=== PATIENT | female | born 1985 | race Caucasian/White ===

== ENCOUNTER 2016-05-21 12:41 | Emergency (ER) | payer BC ==
[2016-05-21 13:54] VITALS: BP 126/71
[2016-05-21] MEDS ORDERED: Famotidine TAB* 20 MG PO ONE (14:30)
--- NOTE | 2016-05-21 14:34 | UC ---
UC General HPI - HPI Summary HPI Summary: patient was throwing up saturday night. slept all day saturday, has not been able to eat or drink feels like her stomach is on fire. - History of Current Complaint Chief Complaint: UCGI Stated Complaint: STOMACH "ON FIRE" Time Seen by Provider: 05/21/16 14:25 Hx Obtained From: Patient Onset/Duration: Sudden Onset, Lasting Days Timing: Constant Onset Severity: Moderate Current Severity: Moderate Pain Intensity: 6 Pain Location at: epigastric Character: burning - Allergy/Home Medications Allergies/Adverse Reactions: Allergies Allergy/AdvReac Type Severity Reaction Status Date / Time Latex Allergy Intermediate Hives Verified 05/21/16 13:54 Penicillins Allergy Intermediate Hives Verified 05/21/16 13:54 PMH/Surg Hx/FS Hx/Imm Hx Previously Healthy: Yes Endocrine History Of: Denies: Diabetes, Thyroid Disease Cardiovascular History Of: Denies: Cardiac Disorders, Hypertension Respiratory History Of: Reports: Asthma - MILD, NOT TREATED, CHILD Denies: COPD GI/ History Of: Denies: Ulcer - Surgical History Surgical History: Yes Surgery Procedure, Year, and Place: T&A, RIGHT KNEE SURERY, TUBES IN EARS. LEFT EAR TUBE INSERTED, OCTOBER 18, 2014 - Family History Known Family History: Positive: Cardiac Disease - father Negative: Hypertension - Social History Alcohol Use: Occasionally Substance Use Type: None Smoking Status (MU): Never Smoked Tobacco Have You Smoked in the Last Year: No Review of Systems Constitutional: Fatigue Skin: Negative Eyes: Negative ENT: Negative Respiratory: Negative Cardiovascular: Negative Gastrointestinal: Abdominal Pain - epigastric, Vomiting Genitourinary: Negative Motor: Negative Neurovascular: Negative Musculoskeletal: Negative Neurological: Negative Psychological: Negative All Other Systems Reviewed And Are Negative: Yes Physical Exam Triage Information Reviewed: Yes Appearance: Well-Nourished, Ill-Appearing, Pain Distress Vital Signs: Initial Vital Signs Temp 97.8 F 05/21/16 13:51 Pulse 82 05/21/16 13:51 Resp 14 05/21/16 13:51 BP 126/71 05/21/16 13:51 Pulse Ox 100 05/21/16 13:51 Vital Signs Reviewed: Yes Eye Exam: Normal Eyes: Positive: Conjunctiva Clear ENT Exam: Normal ENT: Positive: Hearing grossly normal, Pharyngeal erythema, TMs normal Dental Exam: Normal Neck exam: Normal Neck: Positive: Supple, Nontender, No Lymphadenopathy Respiratory Exam: Normal Respiratory: Positive: Chest non-tender, Lungs clear, Normal breath sounds Cardiovascular Exam: Normal Cardiovascular: Positive: RRR, No Murmur, Pulses Normal Abdominal Exam: Other - epigastric tenderness, no rebound tenderness, no guarding or distention Abdomen Description: Positive: No Organomegaly Bowel Sounds: Positive: Present Musculoskeletal Exam: Normal Neurological Exam: Normal Neurological: Positive: Alert, Muscle Tone Normal Psychological Exam: Normal Skin Exam: Normal Course/Dx - Course Course Of Treatment: hx obtained, exam performed, famotidine given with good results. medication prescribed. - Differential Dx - Multi-Symptom Provider Diagnoses: epigastric pain. GERD Discharge - Discharge Plan Condition: Stable Disposition: HOME Forms: *Work Release
== END 2016-05-21 15:24 | disposition home or self-care (01) ==
LOC: UCCORT 12:41
DX: K21.9 Gastro-esophageal reflux disease without esophagitis (principal); R10.13 Epigastric pain; Z88.0 Allergy status to penicillin
CPT/HCPCS: 99212; A9270-GY; G0463

== ENCOUNTER 2017-02-19 08:28 | Emergency (ER) | payer SELFPAY ==
[2017-02-19 08:42] VITALS: BP 134/78
--- NOTE | 2017-02-19 09:22 | UC ---
Hand/Wrist HPI - HPI Summary HPI Summary: right hand pain x 3 hrs injury to her right hand at work crushing injury + pain and swelling of the hand - History Of Current Complaint Chief Complaint: UCUpperExtremity Stated Complaint: RIGHT HAND INJURY WC Time Seen by Provider: 02/19/17 08:39 Hx Obtained From: Patient Hx Last Menstrual Period: 02/15/17 Onset/Duration: Sudden Onset, Lasting Hours - 3, Still Present Severity Initially: Moderate Severity Currently: Moderate Character Of Pain: Aching Aggravating Factor(s): Movement, Flexion, Extension Alleviating Factor(s): Rest, Ice Associated Signs And Symptoms: Positive: Swelling. Negative: Redness, Bruising , Fever, Weakness, Numbness/Tingling - Allergies/Home Medications Allergies/Adverse Reactions: Allergies Allergy/AdvReac Type Severity Reaction Status Date / Time Latex Allergy Intermediate Hives Verified 02/19/17 08:42 Penicillins Allergy Intermediate Hives Verified 02/19/17 08:42 PMH/Surg Hx/FS Hx/Imm Hx Previously Healthy: Yes Respiratory History: Asthma - Surgical History Surgical History: Yes Surgery Procedure, Year, and Place: T&A, RIGHT KNEE SURERY, TUBES IN EARS. LEFT EAR TUBE INSERTED, OCTOBER 18, 2014 - Family History Known Family History: Positive: Cardiac Disease - father Negative: Hypertension - Social History Alcohol Use: Occasionally Substance Use Type: None Smoking Status (MU): Never Smoked Tobacco Have You Smoked in the Last Year: No Review of Systems Constitutional: Negative Skin: Negative Eyes: Negative ENT: Negative Respiratory: Negative Is Patient Immunocompromised?: No All Other Systems Reviewed And Are Negative: Yes Physical Exam Triage Information Reviewed: Yes Appearance: Well-Appearing, No Pain Distress, Well-Nourished Vital Signs: Initial Vital Signs Temp 98.6 F 02/19/17 08:33 Pulse 67 02/19/17 08:33 Resp 18 02/19/17 08:33 BP 134/78 02/19/17 08:33 Vital Signs Reviewed: Yes Eye Exam: Normal Eyes: Positive: Conjunctiva Clear ENT: Positive: Normal ENT inspection, Hearing grossly normal, Pharynx normal Neck: Positive: Supple, Nontender, No Lymphadenopathy Respiratory: Positive: Chest non-tender, Lungs clear, Normal breath sounds Cardiovascular: Positive: RRR, No Murmur, Pulses Normal Musculoskeletal: Positive: Other: - right hand : + swelling, no ecchymosis, + tenderness 2,3rd metacarpal, goo ROM with flexion and extension Skin Exam: Normal Hand/Wrist Course/Dx - Differential Dx/Diagnosis Provider Diagnoses: contusion right hand Discharge - Discharge Plan Condition: Stable Disposition: HOME Patient Education Materials: Contusion in Adults (ED) Referrals: Gamal Meredith MD [Primary Care Provider] - 7 Days
--- NOTE | 2017-02-19 09:33 | RAD ---
INDICATION: Right hand injury. TECHNIQUE: 4 views of the right hand were obtained. FINDINGS: The bones are in normal alignment. No fracture is seen. Joint spaces appear maintained. IMPRESSION: NO EVIDENCE FOR FRACTURE, IF THE PATIENT'S SYMPTOMS PERSIST RECOMMEND FOLLOW-UP IMAGING.
== END 2017-02-19 09:38 | disposition home or self-care (01) ==
LOC: UCCORT 08:28
DX: Z88.0 Allergy status to penicillin (principal); Z91.040 Latex allergy status; S60.221A Contusion of right hand, initial encounter; X58.XXXA Exposure to other specified factors, initial encounter; Y92.9 Unspecified place or not applicable; Y99.0 Civilian activity done for income or pay
CPT/HCPCS: 99212; G0463

== ENCOUNTER 2018-05-03 09:12 | Emergency (ER) | payer BC ==
[2018-05-03 09:31] VITALS: BP 142/72
[2018-05-03] MEDS ORDERED: Naproxen TAB* 250 MG PO ONE (09:31)
--- NOTE | 2018-05-03 09:38 | UC ---
Lower Extremity/Ankle HPI - HPI Summary HPI Summary: 32-year-old female presents with 4 day history of right foot pain located at the MTP of the great toe. States started after she was bowling however denies any specific injury. Family history of gout. Denies fever, chills, numbness, or tingling. - History of Current Complaint Chief Complaint: UCLowerExtremity Stated Complaint: RIGHT FOOT COMPLAINT Time Seen by Provider: 05/03/18 09:18 Hx Obtained From: Patient Hx Last Menstrual Period: 04/22/18 Onset/Duration: Gradual Onset, Lasting Days - 4 Severity Currently: Moderate Pain Intensity: 9 Aggravating Factor(s): Standing, Ambulation Alleviating Factor(s): Nothing Able to Bear Weight: Yes - Allergies/Home Medications Allergies/Adverse Reactions: Allergies Allergy/AdvReac Type Severity Reaction Status Date / Time latex Allergy Hives Verified 05/03/18 09:25 Penicillins Allergy Hives Verified 05/03/18 09:25 Home Medications: Home Medications Propranolol TAB* [Inderal TAB*] 10 mg PO DAILY 05/03/18 [History Confirmed 05/03] PMH/Surg Hx/FS Hx/Imm Hx Previously Healthy: Yes Endocrine History: Other - PCOS Neurological History: Migraine - Surgical History Surgical History: Yes Surgery Procedure, Year, and Place: T&A, RIGHT KNEE SURERY, TUBES IN EARS. LEFT EAR TUBE INSERTED, OCTOBER 18, 2014 - Family History Known Family History: Positive: Cardiac Disease - father - Social History Occupation: Employed Full-time Lives: With Family Alcohol Use: Occasionally Substance Use Type: None Smoking Status (MU): Never Smoked Tobacco Have You Smoked in the Last Year: No Review of Systems All Other Systems Reviewed And Are Negative: Yes Constitutional: Negative: Fever, Chills Skin: Positive: Other - Erythema right foot over great toe Motor: Negative: Decreased ROM Neurovascular: Negative: Decreased Sensation Musculoskeletal: Positive: Arthralgia - See HPI Is Patient Immunocompromised?: No Physical Exam - Summary Physical Exam Summary: GENERAL APPEARANCE: Well developed, well nourished, alert and cooperative, and appears to be in no acute distress. CARDIAC: Normal S1 and S2. No S3, S4 or murmurs. Rhythm is regular. There is no peripheral edema, cyanosis or pallor. Extremities are warm and well perfused. Capillary refill is less than 2 seconds. LUNGS: Clear to auscultation and percussion without rales, rhonchi, wheezing or diminished breath sounds. MUSKULOSKELETAL: ROM intact to all extremities. Erythema and tenderness with mild swelling to the MTP of the Right great toe. Normal muscular development. Normal gait. EXTREMITIES: No significant deformity. Peripheral pulses intact. NEUROLOGICAL: Strength and sensation symmetric and intact throughout. SKIN: General skin exam reveals normal color, texture and turgor with no lesions or eruptions. Triage Information Reviewed: Yes Vital Signs: Initial Vital Signs Temp 97.4 F 05/03/18 09:26 Pulse 57 05/03/18 09:26 Resp 16 05/03/18 09:26 BP 142/72 05/03/18 09:26 Pulse Ox 100 05/03/18 09:26 Vital Signs Reviewed: Yes Diagnostics - Radiology No standard instances Radiology Interpretation Completed By: ED Physician - Negative for fracture dislocation. Tophi present MTP right great toe., Radiologist Summary of Radiographic Findings: Patient Name: SONIA GUALLPA Medical Record# : [id number]. Ordering Physician: Jas Garcia NP Acct.#: [id number]. : 1985 Age: 32 Sex: F Location: [facility]. Exam Date: 928 ADM Status: REG ER. Order Information: FOOT RIGHT 3+ VWS. Accession Number: [id number]. CPT: 21746. HISTORY: Pain, right foot pain. COMPARISONS: None. VIEWS: 3 , Frontal, lateral, and oblique views of the right foot. FINDINGS: BONE DENSITY: Normal. BONES: There is no displaced fracture. JOINTS: There is no arthropathy. ALIGNMENT: There is no dislocation. SOFT TISSUES: Unremarkable. OTHER FINDINGS: None. IMPRESSION: NO ACUTE OSSEOUS INJURY. IF SYMPTOMS PERSIST, RECOMMEND REPEAT IMAGING. Lower Extremity Course/Dx - Course Course Of Treatment: 32-year-old female presents with 4 day history of right foot pain located at the MTP of the great toe. States started after she was bowling however denies any specific injury. Family history of gout. Denies fever, chills, numbness, or tingling. Afebrile. VSS. Tenderness with mild erythema and swelling to MTP of right great toe. X-ray negative for fracture. Will treat for acute gout with naproxen 1 tab BID x 7 days then PRN pain. She is to follow up with her PCP if no improvement in symptoms. - Differential Dx/Diagnosis Differential Diagnosis/HQI/PQRI: Arthritis, Contusion, Fracture (Closed), Gout, Sprain Provider Diagnosis: Gouty arthritis of right great toe Discharge - Sign-Out/Discharge Documenting (check all that apply): Patient Departure All imaging exams completed and their final reports reviewed: Yes - Discharge Plan Condition: Stable Disposition: HOME Prescriptions: Naproxen [Naproxen 500 mg tab] 500 mg PO Q12HR #30 tablet Patient Education Materials: Low Purine Diet (ED), Gout (ED) Referrals: Gamal Meredith MD [Primary Care Provider] - 7 Days (If symptoms do not improve.) Additional Instructions: The x-ray performed in the clinic today did not show any evidence of fracture. There was a finding of tophi which are consistent with a diagnosis of gout. Start naproxen 500 mg 1 tab every 12 hours with food for next 7 days. After 7 days, may take every 12 hours as needed for pain. I have given you information regarding a low purine diet which can help prevent gout flare ups in the future. Be sure to review this information. Follow up with your primary care provider in 7 days if no improvement in symptoms. - Billing Disposition and Condition Condition: STABLE Disposition: Home
== END 2018-05-03 09:57 | disposition home or self-care (01) ==
LOC: UCCORT 09:12
DX: M10.9 Gout, unspecified (principal); Z88.0 Allergy status to penicillin
CPT/HCPCS: 99212; A9270-GY; G0463

== ENCOUNTER 2019-06-01 08:04 | Day surgery (SDC) | payer SELFPAY ==
[~2019-06-01 08:04] MED LIST: Buffered Lidocaine 1% SYRIN* 1 ML/SYRINGE INTRADERM ONE; Lactated Ringers 1000 ML Bag* 1,000 ML IV SCH
[2019-06-01] MEDS ORDERED: Clindamycin 900 MG/D5W BAG(*) 900 MG/50 ML BAG IVPB ONE (08:33)
[2019-06-01] MEDS ORDERED: Lidocaine 2% PF* 10 ML AMP ONE (11:05)
[2019-06-01] MEDS ORDERED: Bupivacaine 0.5%* 50 ML MDV VIAL ONE (11:24)
[2019-06-01] MEDS ORDERED: Propofol* 10 MG/ML 20 ML BTL ONE (11:26)
[2019-06-01] MEDS ORDERED: Midazolam* 1 MG/ML 2 ML VIAL (2 MG) ONE (11:28)
[2019-06-01] MEDS ORDERED: HYDROmorphone INJ1* 1 MG/ML SYRINGE IV PRN (12:47)
[2019-06-01] MEDS ORDERED: Naloxone* 0.4 MG/ML 1 ML VIAL IV PRN (12:47)
[2019-06-01] MEDS ORDERED: Ondansetron INJ* 2 MG/ML VIAL IV PRN (12:47)
[2019-06-01] MEDS ORDERED: oxyCODONE TAB* 5 MG TAB ONE (12:57)
[2019-06-01 13:31] VITALS: BP 120/87
--- NOTE | 2019-06-01 20:20 | OP ---
DATE OF OPERATION: 06/01/19 - [facility] DATE OF : 87 ATTENDING SURGEON: Dr. Gamal Dacosta. SLIP COVER SEWER: Lee Rodriguez PA-C PRE-OP DIAGNOSIS: Soft tissue ganglion, dorsal medial left forefoot. POST-OP DIAGNOSIS: Soft tissue ganglion, dorsal medial left forefoot. OPERATIVE PROCEDURE: Excision of ganglion, left foot. DESCRIPTION OF PROCEDURE: The patient was taken to the operating room where local anesthetic was instilled around the mid foot with 2% plain lidocaine. I made a 2 cm longitudinal incision over the dorsal medial first MTP joint where the 1 cm diameter cystic structure was located in the subcutaneous tissue. This was removed in its entirety without penetration of the inner portion of the cyst. We did not see any discrete nerve coursing near or over the ganglion. We irrigated the soft tissues, closing with interrupted Monocryl, nylon for the skin and a compression dressing applied. [id number] #: [id number] MTDD
== END 2019-06-01 13:30 | disposition home or self-care (01) ==
LOC: OR 08:04
PROVIDERS: ATTEND Orthopaedic Surgery
DX: M67.472 Ganglion, left ankle and foot (principal); Z88.0 Allergy status to penicillin; Z91.040 Latex allergy status
CPT/HCPCS: 81025; 88304; A9270-GY; J2001; J2250; J2704; J3490